=== PATIENT | female | born 1990 | race Two or more races ===

== ENCOUNTER 2019-09-01 10:16 | Inpatient (IN) | payer BC, MEDICAID ==
[2019-09-01] MEDS ORDERED: Ampicillin 2 GM AdvVial IV ONE (19:17)
[2019-09-01] MEDS ORDERED: Sodium Chloride 0.9% 100 ML ONE (19:18)
[2019-09-01] MEDS ORDERED: Sodium Chloride 0.9% 10 ML Syringe FLUSH PRN (19:39)
[2019-09-01] MEDS ORDERED: Ondansetron 4 MG/2 ML SDV IVPUSH PRN (19:39)
[2019-09-01] MEDS ORDERED: Oxytocin/Lactated Ringers 10 UNIT/1,000 ML BAG IV SCH (19:45)
[2019-09-01] MEDS: Oxytocin/Lactated Ringers 10 UNIT/1,000 ML BAG IV SCH (20:18)
--- NOTE | 2019-09-01 20:20 | PCM.LDHP ---
L&D History of Present Illness - General Date of Service: 09/01/19 Admit Problem/Dx: Patient Status Order with Admit Dx/Problem 09/01/19 19:39 Patient Status [ADT] Routine Admission Diagnosis/Problem Admission Diagnosis/Problem 09/01/19 20:25 lEa is a 28-year-old 2 para 1001 female who is admitted on the evening of 09/01/2019 for elective induction of labor at 39-2/7 weeks gestational age with an TOBIAS of 09/06/2019. Source of Information: Patient History Limitations: Reports: No Limitations - History of Present Illness Introduction:: Ela is a 28-year-old 2 para 1001 female who is admitted on the evening of 09/01/2019 for elective induction of labor at 39-2/7 weeks gestational age with an TOBIAS of 09/06/2019. The procedure, risks, benefits, alternatives of care including allowing for natural onset of labor all discussed with patient. She appears to understand and wishes to proceed. Presently her cervix is 2 cm, 80% effaced, soft, -3, mid position with baby in cephalic presentation. We CARDIAC SPECIALIST history 2 para 1001 and TOBIAS of 09/06/2019 is based upon a certain last menstrual period starting 11/30/2018 and supported by ultrasounds done on , 04/23/2019, 06/24/2019 in 07/31/2018. Her course has been relatively unremarkable. Patient was first seen for care on 03/13/2019. She originates in [place], [place]. She is made good fundal height growth during the course the . Her weight is increased from 144-171 pounds for a 27 pound weight gain. Her vital signs have been stable. Patient desires an epidural in labor and delivery. She had group B strep positive urine culture at first visit. She did have an abnormal 1 hour glucose tolerance test. This was evaluated with a three-hour glucose tolerance test which was on ultrasound the left renal pelvis was slightly increased in size to 8.2 mm at 29-6/7 weeks. Follow-up ultrasound done on 07/31/2019 was essentially normal. Recommendation was to follow-up in the period with renal ultrasound. Laboratory testing in shows blood to be O+ with a negative and by screen. Hemoglobin on first visit was 12.8 g/dL and platelets are 402,000. She was rubella immune, RPR is nonreactive. B strep grew out of her and at that time. Hepatitis B surface antigen and HIV assays were Chlamydia and gonorrhea assays were both negative. Second trimester hemoglobin was 10.6 g/dL. Platelets were 375,000. One-hour GTT was elevated three-hour GTT showed a fasting blood sugar of 84, a 1 hour glucose of 131 and 2 are glucose of 121 at which time the values were stopped. Allergies: None Medications: 1. Calcium 500 mg daily 2. vitamins 1 daily Past medical history: 1. Normal spontaneous vaginal delivery 1 Past surgical history: 1. Tonsillectomy 2008. Family history: Mother is alive with history of diabetes. Father is alive with history of diabetes. Sister had preeclampsia in , history of twin gestation with one in utero. Maternal grandmother is alive with high cholesterol and diabetes. Maternal grandfather is secondary to diabetes and dementia. Paternal grandmother is secondary to diabetes and dementia. Paternal grandfather is . Cause unknown. Family history of cancer Gloria related issues. Family history of high blood pressure. Social history: Patient is single. 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 She is a high school graduate. She and her significant other Troy live in [place], [place]. She does not use any significant most alcohol, drugs or tobacco. Review of systems: In general patient has no complaints. AB is active. Is having some contractions but they're very mild Skin: Negative Lungs: No infectious symptoms or shortness of breath Cardiovascular: No chest pain or exercise intolerance Breasts: Changes associated with .. GI: Negative : changes Musculoskeletal: Negative Neurological: Negative In general the patient is well-developed, well-nourished, pleasant female of stated age in no acute distress. Skin is warm dry without lesions. HEENT, neck and back within normal limits. Lungs are clear with good breath sounds in all lung angulo. Cardiovascular exam shows regular and rhythm without murmurs. Breast exam is deferred at this time having been done at first visit found to be normal at is not repeated at this point. Abdomen is gravid with fundal height on last evaluation clinic at 38.5 cm. Baby in vertex presentation. Genital per digital exam is as per history of present illness.. Extremities and neurological exam are grossly within normal limits. - Related Data Allergies/Adverse Reactions: Allergies Allergy/AdvReac Type Severity Reaction Status Date / Time No Known Allergies Allergy Verified 05/16/19 16:33 Home Medications: Home Meds Calcium Carbonate [Calcium] 500 mg PO DAILY 05/16/19 [History] Methylcellulose [Fiber Therapy] 500 mg PO DAILY 05/16/19 [History] Vit #76/Iron,Carb/Fa [Pnv 29-1 Tablet] 1 each PO DAILY 05/16/19 [ History] polyethylene glycoL 3350 [MiraLAX] 17 gm PO DAILY 05/16/19 [History] H&P Review of Systems - Review of Systems: Review Of Systems: See Below L&D Exam - Exam Exam: See Below - Vital Signs Weight: 78.471 kg Problem List Initiated/Reviewed/Updated: Yes Orders Last 24hrs: Active Orders 24 hr Category Date Time Status Patient Status [ADT] Routine ADT 09/01/19 19:39 Active Activity as Tolerated [RC] PFP Care 09/01/19 19:39 Active Communication Order [RC] ASDIRECTED Care 09/01/19 19:39 Active Heart Tones [RC] ASDIRECTED Care 09/01/19 19:40 Active Non Stress Test [RC] PER UNIT ROUTINE Care 09/01/19 19:39 Active Notify Provider [RC] PFP Care 09/01/19 19:39 Active Notify Provider [RC] PRN Care 09/01/19 19:39 Active Peripheral IV Care [RC] . DIRECTED Care 09/01/19 19:40 Active Pump Management, Intrathecal [RC] ASDIRECTED Care 09/01/19 19:40 Active Urinary Catheter Assessment [RC] ASDIRECTED Care 09/01/19 19:39 Active Vital Signs [RC] PER UNIT ROUTINE Care 09/01/19 19:39 Active Regular Diet [DIET] Diet 09/01/19 Breakfast Active CBC WITH AUTO DIFF [HEME] Stat Lab 09/01/19 19:39 Ordered RAPID PLASMA REAGIN,RPR [CHEM] Routine Lab 09/01/19 19:39 Ordered Ampicillin 1 gm Med 09/01/19 23:30 Active Sodium Chloride 0.9% [Normal Saline] 100 ml IV Q4H Lactated Ringers [Ringers, Lactated] 1,000 ml Med 09/01/19 19:45 Active IV ASDIRECTED Ondansetron [Zofran] Med 09/01/19 19:39 Active 4 mg IVPUSH Q4H PRN Oxytocin/Lactated Ringers [Pitocin in LR 10 Units/1,000 Med 09/01/19 19:45 Active ML] 10 unit in 1,000 ml IV .CONTINUOUS Oxytocin/Lactated Ringers [Pitocin in LR 10 Units/1,000 Med 09/01/19 19:45 Active ML] 10 unit in 1,000 ml IV TITRATE Sodium Chloride 0.9% [Saline Flush] Med 09/01/19 19:39 Active 10 ml FLUSH ASDIRECTED PRN Electronic Heart Tones Ext w TOCO [WOMSER] Oth 09/01/19 19:39 Ordered Routine Electronic Heart Tones Internal [WOMSER] Per Unit Oth 09/01/19 19:39 Ordered Routine Peripheral IV Insertion Adult [OM.PC] Routine Oth 09/01/19 19:39 Ordered Resuscitation Status Routine Resus Stat 09/01/19 19:39 Ordered Medication Orders Ampicillin Sodium 1 gm/ Sodium (Chloride) 100 mls @ 200 mls/hr IV Q4H SANJIV Lactated Ringer's (Ringers, Lactated) 1,000 mls @ 100 mls/hr IV ASDIRECTED SANJIV Oxytocin/Lactated Ringer's (Pitocin In Lr 10 Units/1,000 Ml) 10 unit in 1,000 mls @ 500 mls/hr IV .CONTINUOUS SANJIV Oxytocin/Lactated Ringer's (Pitocin In Lr 10 Units/1,000 Ml) 10 unit in 1,000 mls @ 12 mls/hr IV TITRATE SANJIV; Protocol Ondansetron HCl (Zofran) 4 mg IVPUSH Q4H PRN PRN Reason: Nausea/Vomiting Sodium Chloride (Saline Flush) 10 ml FLUSH ASDIRECTED PRN PRN Reason: Keep Vein Open Assessment/Plan Comment:: 1. 39-2/7 week intrauterine admitted for elective induction of labor. 2. Patient plans to breast-feed 3. Patient desires epidural in labor and delivery. 4. The patient received her T Immunization on 07/09/2019 5. Patient is rubella immune. Plan: 1. Pitocin induction of labor to be followed by artificial rupture membranes augmentation. The procedure, risks, benefits discussed with patient. She wishes to proceed 2. Epidural when necessary 3. CBC and RPR on admission 4. Support breast-feeding decision 5. Anticipate normal spontaneous vaginal delivery
[2019-09-01] MEDS: Ampicillin 1 GM in Sodium Chloride 0.9% 100 ML IV SCH (23:39)
[2019-09-02] MEDS ORDERED: Bupivacaine 0.25% 10 ML SDV ONE
[2019-09-02] MEDS: Ampicillin 1 GM in Sodium Chloride 0.9% 100 ML IV SCH ×2 (03:37→07:29)
[2019-09-02] MEDS: Lactated Ringers 1,000 ML IV SCH ×4 (03:38→06:29)
[2019-09-02] MEDS ORDERED: diphenhydrAMINE 50 MG/ML SDV IVPUSH PRN (03:58)
[2019-09-02] MEDS ORDERED: Bupivacaine/fentaNYL/NS 100 ML Bag EPIDUR PRN (03:58)
[2019-09-02] MEDS ORDERED: ePHEDrine 50 MG/ML SDV IVPUSH PRN (03:58)
[2019-09-02] MEDS ORDERED: fentaNYL 100 MCG/2 ML SDV EPIDUR PRN (03:58)
--- NOTE | 2019-09-02 04:31 | PCM.PREANE ---
Preanesthetic Assessment - Procedure Proposed Procedure: epidural - Anesthesia/Transfusion/Family Hx Anesthesia History: Prior Anesthesia Without Reaction Family History of Anesthesia Reaction: No Transfusion History: No Prior Transfusion(s) - Review of Systems General: Fatigue Pulmonary: No Symptoms Cardiovascular: No Symptoms Gastrointestinal: Abdominal Pain (labor) Neurological: Numbness (hands with ) Other: Reports: None - Physical Assessment Vital Signs: Last Vital Signs Temp 37.1 C 09/01/19 20:00 Pulse 92 09/01/19 20:00 Resp 16 09/01/19 20:00 BP 133/82 09/01/19 20:00 Pulse Ox 100 09/01/19 20:00 Height: 1.5 m Weight: 78.471 kg ASA Class: 2 Mental Status: Alert & Oriented x3 Airway Class: Mallampati = 2 Dentition: Reports: Normal Dentition Thyro-Mental Finger Breadths: 3 Mouth Opening Finger Breadths: 3 ROM/Head Extension: Full Lungs: Clear to Auscultation, Normal Respiratory Effort Cardiovascular: Regular Rate, Regular Rhythm - Lab Values: Laboratory Last Values WBC 8.81 K/mm3 (3.98-10.04) 09/01/19 20:15 RBC 3.95 M/mm3 (3.98-5.22) L 09/01/19 20:15 Hgb 9.8 gm/dl (11.2-15.7) L 09/01/19 20:15 Hct 31.0 % (34.1-44.9) L 09/01/19 20:15 MCV 78.5 fl (79.4-94.8) L D 09/01/19 20:15 MCH 24.8 pg (25.6-32.2) L 09/01/19 20:15 MCHC 31.6 g/dl (32.2-35.5) L 09/01/19 20:15 RDW Std Deviation 42.2 fL (36.4-46.3) 09/01/19 20:15 Plt Count 427 K/mm3 (182-369) H 09/01/19 20:15 MPV 9.2 fl (9.4-12.3) L 09/01/19 20:15 Neut % (Auto) 63.4 % (34.0-71.1) 09/01/19 20:15 Lymph % (Auto) 26.8 % (19.3-51.7) 09/01/19 20:15 [place] % (Auto) 7.5 % (4.7-12.5) 09/01/19 20:15 Eos % (Auto) 1.1 (0.7-5.8) 09/01/19 20:15 Baso % (Auto) 0.2 % (0.1-1.2) 09/01/19 20:15 Neut # (Auto) 5.58 K/mm3 (1.56-6.13) 09/01/19 20:15 Lymph # (Auto) 2.36 K/mm3 (1.18-3.74) 09/01/19 20:15 [place] # (Auto) 0.66 K/mm3 (0.24-0.36) H 09/01/19 20:15 Eos # (Auto) 0.10 K/mm3 (0.04-0.36) 09/01/19 20:15 Baso # (Auto) 0.02 K/mm3 (0.01-0.08) 09/01/19 20:15 RPR Non-reactive (NONREACTIVE) 09/01/19 20:15 - Allergies Allergies/Adverse Reactions: Allergies Allergy/AdvReac Type Severity Reaction Status Date / Time No Known Allergies Allergy Verified 05/16/19 16:33 - Anesthesia Plan Pre-Op Medication Ordered: None - Acknowledgements Anesthesia Type Planned: Epidural Pt an Appropriate Candidate for the Planned Anesthesia: Yes Alternatives and Risks of Anesthesia Discussed w Pt/Guardian: Yes Pt/Guardian Understands and Agrees with Anesthesia Plan: Yes PreAnesthesia Questionnaire Gastrointestinal History: Reports: GERD ENGINEERING SPECIALIST History: Reports: - Past Surgical History HEENT Surgical History: Reports: Tonsillectomy - SUBSTANCE USE Smoking Status *Q: Never Smoker Second Hand Smoke Exposure: No Recreational Drug Use History: No - HOME MEDS Home Medications: Home Meds . [No Known Home Meds] 09/01/19 [History] - CURRENT (IN HOUSE) MEDS Current Meds: Current Medications Diphenhydramine HCl (Benadryl) 25 mg IVPUSH Q6H PRN PRN Reason: Itching Ephedrine Sulfate (Ephedrine Sulfate) 5 mg IVPUSH ASDIRECTED PRN PRN Reason: HYPOTENTSION Fentanyl (Sublimaze) 100 mcg EPIDUR Q3H PRN PRN Reason: Pain Fentanyl/Bupivacaine HCl (Fentanyl/Bupivacaine/Ns 2 Mcg-0.125% 100 Ml) 0 ml EPIDUR CONTINUOUS PRN PRN Reason: Pain Ampicillin Sodium 1 gm/ Sodium (Chloride) 100 mls @ 200 mls/hr IV Q4H SANJIV Last Admin: 09/02/19 03:37 Dose: 200 mls/hr Lactated Ringer's (Ringers, Lactated) 1,000 mls @ 100 mls/hr IV ASDIRECTED SANJIV Last Admin: 09/02/19 03:39 Dose: 100 mls/hr Oxytocin/Lactated Ringer's (Pitocin In Lr 10 Units/1,000 Ml) 10 unit in 1,000 mls @ 500 mls/hr IV .CONTINUOUS SANJIV Oxytocin/Lactated Ringer's (Pitocin In Lr 10 Units/1,000 Ml) 10 unit in 1,000 mls @ 12 mls/hr IV TITRATE SANJIV; Protocol Last Titration: 09/01/19 23:44 Dose: 12 munits/min, 72 mls/hr Ondansetron HCl (Zofran) 4 mg IVPUSH Q4H PRN PRN Reason: Nausea/Vomiting Sodium Chloride (Saline Flush) 10 ml FLUSH ASDIRECTED PRN PRN Reason: Keep Vein Open Discontinued Medications Ampicillin Sodium (Ampicillin) Confirm Administered Dose 2 gm IV .STK-MED ONE Stop: 09/01/19 19:18 Last Admin: 09/01/19 19:27 Dose: 2 gm Sodium Chloride (Normal Saline) Confirm Administered Dose 100 mls @ as directed .ROUTE .STK-MED ONE Stop: 09/01/19 19:19 Last Admin: 09/01/19 19:27 Dose: 200 mls/hr
[2019-09-02] MEDS: Oxytocin/Lactated Ringers 10 UNIT/1,000 ML BAG IV SCH (09:58)
--- NOTE | 2019-09-02 10:43 | PCM.SN ---
- Free Text/Narrative Note: Ela is a 28-year-old 2 para 1001 female who is admitted on the evening of 09/01/2019 for elective induction of labor at 39-2/7 weeks gestational age with an TOBIAS of 09/06/2019. She underwent Pitocin induction of labor and with that cervix changed to dilation of 3+ centimeters, 90% effacement , -2 station, anterior, cephalic presentation. She underwent artificial rupture membranes at approximately 0300 hrs. on 09/02/2019. She then progressed to complete cervical dilation by approximately 0855 hrs. She began pushing at that time and pushed steadily and well. She had an epidural for labor analgesia. At 1016 hrs. on 09/02/2019 she delivered a viable, ambrocio, male named Khanh Miller. Khanh had a weight of 3430 g (7 lbs. 9 oz.) with Apgars of 7 and 9, a length of 20.5 inches. He delivered in a direct occiput anterior position spontaneously. Upon completion of the delivery the baby was placed on mom's abdomen. Cord was allowed to pulsate for 1-2 minutes and then was clamped 2 and cut by the baby's father Troy. Nose and mouth were bulb suctioned. The Pitocin was increased to 500 mL an hour to facilitate increased uterine tone and decreased likelihood of bleeding. Her blood was obtained. The umbilical cord was noted to have 3 blood vessels. The placenta then delivered at 1019 hrs. in a Mcgill presentation, appeared intact and complete and was discarded per patient desire. Uterus was massaged and found to be firm. Patient had approximately 300 mL of blood loss. Her perineum and vagina were intact and no suturing was required. plans to breast-feed. Condition: Good
[2019-09-02] MEDS ORDERED: Witch Hazel Medicated Pads 40/Jar TOP PRN (11:29)
[2019-09-02] MEDS ORDERED: Acetaminophen 325 MG Tab PO PRN (11:29)
[2019-09-02] MEDS ORDERED: Docusate Sodium 100 MG Cap PO PRN (11:29)
[2019-09-02] MEDS ORDERED: Benzocaine/Menthol 20%-0.5% Spray 56 GM Canister TOP PRN (11:29)
[2019-09-02] MEDS: Ibuprofen 600 MG Tab PO PRN ×2 (12:46→18:51)
[2019-09-03] MEDS: Ibuprofen 600 MG Tab PO PRN ×2 (02:52→12:31)
--- NOTE | 2019-09-03 10:01 | PCM.DCSUM1 ---
Discharge Summary - Hospital Course Free Text/Narrative:: Ela is a 28-year-old 2 para 1001 female who is admitted on the evening of 09/01/2019 for elective induction of labor at 39-2/7 weeks gestational age with an TOBIAS of 09/06/2019. She underwent Pitocin induction of labor and with that cervix changed to dilation of 3+ centimeters, 90% effacement , -2 station, anterior, cephalic presentation. She underwent artificial rupture membranes at approximately 0300 hrs. on 09/02/2019. She then progressed to complete cervical dilation by approximately 0855 hrs. She began pushing at that time and pushed steadily and well. She had an epidural for labor analgesia. At 1016 hrs. on 09/02/2019 she delivered a viable, ambrocio, male infant named Khanh Miller. Khanh had a weight of 3430 g (7 lbs. 9 oz.) with Apgars of 7 and 9, a length of 20.5 inches. He delivered in a direct occiput anterior position spontaneously. Upon completion of the delivery the baby was placed on mom's abdomen. Cord was allowed to pulsate for 1-2 minutes and then was clamped 2 and cut by the baby's father Troy. Nose and mouth were bulb suctioned. The Pitocin was increased to 500 mL an hour to facilitate increased uterine tone and decreased likelihood of bleeding. Her blood was obtained. The umbilical cord was noted to have 3 blood vessels. The placenta then delivered at 1019 hrs. in a Mcgill presentation, appeared intact and complete and was discarded per patient desire. Uterus was massaged and found to be firm. Patient had approximately 300 mL of blood loss. Her perineum and vagina were intact and no suturing was required. The patient plans to breast-feed. patient is doing well. She is ambulatory and well, nursing without problems and has minimal discharge. She is voiding without concerns. Patient is desiring discharge home Condition: Good Diagnosis: Stroke: No - Discharge Data Discharge Date: 09/03/19 Discharge Disposition: Home, Self-Care 01 Condition: Good - Referral to Home Health Primary Care Physician: Keanu Lindo MD - Patient Instructions Diet: Regular Diet as Tolerated (Nursing diet with increase calories and calcium as recommended) Activity: As Tolerated (No intercourse or tampons until bleeding resolves.) Driving: May Drive Today Showering/Bathing: May Shower (May take a bath) Notify Provider of: Fever, Increased Pain, Swelling and Redness, Nausea and/or Vomiting - Discharge Plan Prescriptions/Med Rec: Pnv No.95/Ferrous Fum/Folic AC [Prenavite Tablet] 1 each PO QAM #100 tablet Home Medications: Home Meds Acetaminophen [Tylenol] 650 mg PO Q4H PRN tablet 09/03/19 [Rx] Ibuprofen [Motrin] 600 mg PO Q4H PRN tablet 09/03/19 [Rx] Pnv No.95/Ferrous Fum/Folic AC [Prenavite Tablet] 1 each PO QAM #100 tablet 07/11 [Rx] Referrals: Keanu Lindo MD [Primary Care Provider] - (Return to clinic[facility]. Lindo September, at [facility] in [place], [place].) - Discharge Summary/Plan Comment DC Time >30 min.: No Discharge Summary/Plan Comment: Discharge instructions: 1. Discharge home 2. Diet, activity and follow-up discussed with patient. Recommend nursing diet with increased calories and calcium. 3. Precautions given concern increased pain, bleeding, temperature, signs/ symptoms of DVT/PE. 4. Medications per home medication was printed, discussed with and given to the patient. 5. Return to clinic-Dr. Lindo-[facility] in [place], [place]. Diagnosis: Term -delivered Condition: Good - Patient Data Vitals - Most Recent: Last Vital Signs Temp 36.8 C 09/03/19 08:43 Pulse 89 09/03/19 08:43 Resp 16 09/03/19 08:43 BP 94/61 09/03/19 08:43 Pulse Ox 97 09/03/19 08:43 Weight - Most Recent: 78.471 kg I&O - Last 24 hours: Intake & Output 09/02/19 09/03/19 09/03/19 22:59 06:59 14:59 Intake Total 320 Balance 320 Med Orders - Current: Current Medications Acetaminophen (Tylenol) 650 mg PO Q4H PRN PRN Reason: mild pain or fever Last Admin: 09/02/19 17:52 Dose: 650 mg Benzocaine/Menthol (Dermoplast Pain Relief [place]) 0 gm TOP ASDIRECTED PRN PRN Reason: Perineal Comfort Measure Last Admin: 09/02/19 12:28 Dose: 1 applic Docusate Sodium (Colace) 100 mg PO BID PRN PRN Reason: Constipation Ibuprofen (Motrin) 600 mg PO Q4H PRN PRN Reason: Mild pain or fever Last Admin: 09/03/19 02:52 Dose: 600 mg Witch Ellie (Tucks) 1 pad TOP ASDIRECTED PRN PRN Reason: Pain Last Admin: 09/02/19 12:28 Dose: 1 applic Discontinued Medications Ampicillin Sodium (Ampicillin) Confirm Administered Dose 2 gm IV .Nuserv-MED ONE Stop: 09/01/19 19:18 Last Admin: 09/01/19 19:27 Dose: 2 gm Bupivacaine HCl (Sensorcaine-Mpf 0.25%) 10 ml .ROUTE .Nuserv-MED ONE Stop: 09/02/19 00:01 Diphenhydramine HCl (Benadryl) 25 mg IVPUSH Q6H PRN PRN Reason: Itching Ephedrine Sulfate (Ephedrine Sulfate) 5 mg IVPUSH ASDIRECTED PRN PRN Reason: HYPOTENTSION Fentanyl (Sublimaze) 100 mcg EPIDUR Q3H PRN PRN Reason: Pain Fentanyl/Bupivacaine HCl (Fentanyl/Bupivacaine/Ns 2 Mcg-0.125% 100 Ml) 0 ml EPIDUR CONTINUOUS PRN PRN Reason: Pain Sodium Chloride (Normal Saline) Confirm Administered Dose 100 mls @ as directed .ROUTE .Nuserv-MED ONE Stop: 09/01/19 19:19 Last Admin: 09/01/19 19:27 Dose: 200 mls/hr Ampicillin Sodium 1 gm/ Sodium (Chloride) 100 mls @ 200 mls/hr IV Q4H SANJIV Last Admin: 09/02/19 07:29 Dose: 200 mls/hr Lactated Ringer's (Ringers, Lactated) 1,000 mls @ 100 mls/hr IV ASDIRECTED SANJIV Last Admin: 09/02/19 06:29 Dose: 100 mls/hr Oxytocin/Lactated Ringer's (Pitocin In Lr 10 Units/1,000 Ml) 10 unit in 1,000 mls @ 500 mls/hr IV .CONTINUOUS SANJIV Oxytocin/Lactated Ringer's (Pitocin In Lr 10 Units/1,000 Ml) 10 unit in 1,000 mls @ 12 mls/hr IV TITRATE SANJIV; Protocol Last Admin: 09/02/19 09:58 Dose: 10 munits/min, 60 mls/hr Ondansetron HCl (Zofran) 4 mg IVPUSH Q4H PRN PRN Reason: Nausea/Vomiting Sodium Chloride (Saline Flush) 10 ml FLUSH ASDIRECTED PRN PRN Reason: Keep Vein Open
--- NOTE | 2019-09-03 11:56 | PCM48HPAN ---
Post Anesthesia Note - EVALUATION WITHIN 48HRS OF ANESTHETIC Vital Signs in Normal Range: Yes Patient Participated in Evaluation: Yes Respiratory Function Stable: Yes Airway Patent: Yes Cardiovascular Function Stable: Yes Hydration Status Stable: Yes Pain Control Satisfactory: Yes Nausea and Vomiting Control Satisfactory: Yes Mental Status Recovered: Yes Vital Signs: Last Vital Signs Temp 36.8 C 09/03/19 08:43 Pulse 89 09/03/19 08:43 Resp 16 09/03/19 08:43 BP 94/61 09/03/19 08:43 Pulse Ox 97 09/03/19 08:43
== END 2019-09-03 13:50 | disposition home or self-care (01) | DRG 560 ==
LOC: JD.OB 10:16 → OBSVTOIN 09-02 10:16 → JD.OB 09-02 10:17
PROVIDERS: ADMIT Obstetrics & Gynecology; ATTEND Obstetrics & Gynecology
PROC: 10E0XZZ Delivery of Products of Conception, External Approach (ICD-10-PCS; principal; 2019-09-02)
PROC: 10907ZC Drainage of Amniotic Fluid, Therapeutic from Products of Conception, Via Natural or Artificial Opening (ICD-10-PCS; 2019-09-02)
PROC: 3E033VJ Introduction of Other Hormone into Peripheral Vein, Percutaneous Approach (ICD-10-PCS; 2019-09-02)
PROC: 3E0R3BZ Introduction of Anesthetic Agent into Spinal Canal, Percutaneous Approach (ICD-10-PCS; 2019-09-02)
DX: O99.824 Streptococcus B carrier state complicating childbirth (principal); Z3A.39 39 weeks gestation of pregnancy; Z37.0 Single live birth; Z79.899 Other long term (current) drug therapy; Z90.89 Acquired absence of other organs
CPT/HCPCS: 01967; 36415; 51702; 59025; 59409; 85025; 86592; A9270-GY; J0290; J2590; J3490; J7050; J7120

== ENCOUNTER 2020-08-16 00:22 | Inpatient (IN) | payer BC, MEDICAID ==
[2020-08-16] MEDS ORDERED: Calcium Carbonate 500 MG Tab.Chew PO PRN (13:22)
[2020-08-16] MEDS ORDERED: Nalbuphine 10 MG/1 ML Vial IVPUSH PRN (13:22)
[2020-08-16] MEDS ORDERED: Sodium Chloride 0.9% 10 ML Syringe FLUSH PRN (13:22)
[2020-08-16] MEDS ORDERED: Ondansetron 4 MG/2 ML SDV IVPUSH PRN (13:22)
[2020-08-16] MEDS ORDERED: Oxytocin/Lactated Ringers 10 UNIT/1,000 ML BAG IV SCH ×2 (13:30)
--- NOTE | 2020-08-16 13:41 | PCM.PREANE ---
Preanesthetic Assessment - Procedure Proposed Procedure: cj - Anesthesia/Transfusion/Family Hx Anesthesia History: Prior Anesthesia Without Reaction Family History of Anesthesia Reaction: No Transfusion History: No Prior Transfusion(s) - Review of Systems General: No Symptoms Pulmonary: No Symptoms Cardiovascular: No Symptoms Gastrointestinal: No Symptoms Neurological: No Symptoms Other: Reports: None - Physical Assessment Vital Signs: 131/77 20 104/ Height: 5 ft 2 in Weight: 80.286 kg ASA Class: 2 Mental Status: Alert & Oriented x3 Airway Class: Mallampati = 1 Dentition: Reports: Normal Dentition Thyro-Mental Finger Breadths: 3 Mouth Opening Finger Breadths: 3 ROM/Head Extension: Full Lungs: Clear to Auscultation, Normal Respiratory Effort Cardiovascular: Regular Rate, Regular Rhythm - Allergies Allergies/Adverse Reactions: Allergies Allergy/AdvReac Type Severity Reaction Status Date / Time No Known Allergies Allergy Verified 05/16/19 16:33 - Blood Blood Available: No - Acknowledgements Anesthesia Type Planned: Epidural Pt an Appropriate Candidate for the Planned Anesthesia: Yes Alternatives and Risks of Anesthesia Discussed w Pt/Guardian: Yes Pt/Guardian Understands and Agrees with Anesthesia Plan: Yes PreAnesthesia Questionnaire Cardiovascular History: Reports: None Respiratory History: Reports: None NUCLEAR SCIENTIST History: Reports: : 3 (40 weeks) Para: 2 Oncologic (Cancer) History: Reports: None - Past Surgical History HEENT Surgical History: Reports: Tonsillectomy - SUBSTANCE USE Tobacco Use Status *Q: Former Tobacco User Tobacco Use Within Last Twelve Months: No Second Hand Smoke Exposure: No Days Per Week of Alcohol Use: 0 Recreational Drug Use History: No - HOME MEDS Home Medications: Home Meds Pnv No.95/Ferrous Fum/Folic AC [Prenavite Tablet] 1 each PO QAM #100 tablet 09/03/19 [Rx] - CURRENT (IN HOUSE) MEDS Current Meds: Current Medications Calcium Carbonate/Glycine (Tums) 1,000 mg PO Q2H PRN PRN Reason: Indigestion Ampicillin Sodium 2 gm/ Sodium (Chloride) 100 mls @ 200 mls/hr IV ONETIME ONE Stop: 08/16/20 14:29 Ampicillin Sodium 1 gm/ Sodium (Chloride) 100 mls @ 200 mls/hr IV Q4H SANJIV Oxytocin/Lactated Ringer's (Pitocin In Lr 10 Units/1,000 Ml) 10 unit in 1,000 mls @ 12 mls/hr IV TITRATE SANJIV; Protocol Oxytocin/Lactated Ringer's (Pitocin In Lr 10 Units/1,000 Ml) 10 unit in 1,000 mls @ 100 mls/hr IV .CONTINUOUS SANJIV Lactated Ringer's (Ringers, Lactated) 1,000 mls @ 100 mls/hr IV ASDIRECTED SANJIV Nalbuphine HCl (Nubain) 10 mg IVPUSH Q2H PRN PRN Reason: Pain Ondansetron HCl (Zofran) 4 mg IVPUSH Q4H PRN PRN Reason: Nausea/Vomiting Sodium Chloride (Saline Flush) 10 ml FLUSH ASDIRECTED PRN PRN Reason: Keep Vein Open
[2020-08-16] MEDS ORDERED: diphenhydrAMINE 50 MG/ML SDV IVPUSH PRN (13:43)
[2020-08-16] MEDS ORDERED: Bupivacaine/fentaNYL/NS 100 ML Bag EPIDUR PRN (13:43)
[2020-08-16] MEDS ORDERED: ePHEDrine 50 MG/ML SDV IVPUSH PRN (13:43)
[2020-08-16] MEDS ORDERED: fentaNYL 100 MCG/2 ML SDV EPIDUR PRN (13:43)
[2020-08-16] MEDS: Lactated Ringers 1,000 ML IV SCH ×4 (13:56→19:59)
[2020-08-16] MEDS ORDERED: Ampicillin 2 GM in Sodium Chloride 0.9% 100 ML IV ONE (14:00)
--- NOTE | 2020-08-16 14:03 | PCM.LDHP ---
L&D History of Present Illness - General Date of Service: 08/16/20 Admit Problem/Dx: Patient Status Order with Admit Dx/Problem 08/16/20 13:22 Patient Status [ADT] Routine Admission Diagnosis/Problem Admission Diagnosis/Problem 08/16/20 13:50 Ela is a 29-year-old 3 para 2-0-0-2 female who is admitted for elective induction of labor on 08/16/2020 at 40-2/7 weeks gestational age with final TOBIAS of 08/14/2020. Source of Information: Patient History Limitations: Reports: No Limitations - History of Present Illness Introduction:: Ela is a 29-year-old 3 para 2-0-0-2 female who is admitted for elective induction of labor on 08/16/2020 at 40-2/7 weeks gestational age with final TOBIAS of 08/14/2020. The procedure and process of induction of labor, its risks, benefits, alternatives including allowing for natural onset of labor all discussed with the patient. She appears understand, wishes to proceed. She underwent AROM with resultant very light stained meconium and amniotic fluid. heart tones are reassuring. Cervix is 3 cm, 50% effaced, very soft, mid position to mildly posterior, -3 station but well applied to the cervix. Pitocin augmentation will be used as indicated. 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 Her TOBIAS of 08/14/2020 is determined by a last menstrual period starting 11/08/2019 and supported by an ultrasound done at 18-4/7 weeks and again at 20-3/7 weeks. Patient had menarche at age 15 approximately. Cycles q. months. Last menstrual period 11/08/2019. No control being used at time of conception. Her last 2 deliveries include the followin. Female infant born 06/30/2009 at 40 weeks gestational age after 5 hours of labor7 pounds 9 ounces. . Epidural used in labor. Born in [place]. Child's name is Anabel Garcia 2. Male infant born 09/01/2017 at 39-2/7 weeks gestational age7 pounds 9 ouncesNSVDepidural useSaint Alireza Costachild's name is Khanh course: Patient was seen early in 14 weeks gestational age. She had an ultrasound done at 18-4/7 weeks gestational age. She was seen on a regular basis. Weight gain was from a pregravida weight of 159 up to 175 for a 16 pound increase. Vital signs remained stable throughout the course. Fundal height growth was appropriate. Baby in vertex presentation. Patient is group B strep positive on urine culture. She is planning on epidural. She plans to breast-feed. She tested Covid positive on 07/14/2020. She is over this at this point with no residual effects. Laboratory testing in shows blood to be O+ with a negative antibody screen. First hemoglobin is 1.6. Platelets were 378,000. Pap smear was negative. Her rubella titer was immune RPR was nonreactive. Her showed group B strep positive status GC chlamydia were both negative. Second trimester hemoglobin showed 10.9 g/dL. Platelets 350,000 and diabetes screen was 113normal. RPR on 05/28/2020 was nonreactive. Group B strep was positive on culture. Allergies: None Medications: 1. vitamins 1 daily 2. Calcium 500 mg tabs daily Past medical history: 1. Normal spontaneous vaginal delivery x2. 2. Patient nausea after anesthetic. Past surgical history: 1. Tonsillectomy 2008 Family history: Mother is alive with history of diabetes. Father is alive with history of diabetes. Sister had preeclampsia in with history of twin gestation was 1 in utero. Maternal grandmother is alive with high cholesterol and diabetes. Maternal grandfather is secondary to diabetes and dementia. Paternal grandmother secondary to diabetes and dementia. Paternal grandmother father is deceasedcause unknown. Social history: Patient is single. She lives in [place], [place]. 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 She is a high school graduate. Her significant other is Troy. She does not use any significant alcohol, drugs or tobacco. Review of systems: In general patient has no complaints. Baby has been active. No contractions noted. Skin: Negative Lungs: No infectious symptoms or shortness of breath Cardiovascular: No chest pain or exercise intolerance Breasts: No lumps, changes in size, pain, dimpling, discharge or axillary or supraclavicular concerns. GI: Negative : Negative Musculoskeletal: Negative Neurological: Negative Physical exam: In general the patient is well-developed, well-nourished, pleasant female of stated age in no acute distress. Skin is warm dry without lesions. HEENT, neck and back within normal limits. Lungs are clear with good breath sounds in all lung angulo. Cardiovascular exam shows regular and rhythm without murmurs. Breast exam not done have been done at first visit found to be normal. Exam deferred have been on first visit found to be normal. Abdomen is protuberant with last fundal height in clinic-5 cm with baby in vertex presentation.. Genital per speculum bimanual shows normal external genitalia, BUS, pubic hair pattern. There is normal support, secretions and estrogenization vagina. Uterus is small, anterior, freely mobile, without parametrial induration or adnexal abnormalities. Extremities and neurological exam are grossly within normal limits. - Related Data Allergies/Adverse Reactions: Allergies Allergy/AdvReac Type Severity Reaction Status Date / Time No Known Allergies Allergy Verified 08/16/20 13:46 Home Medications: Home Meds Pnv No.95/Ferrous Fum/Folic AC [Prenavite Tablet] 1 each PO QAM #100 tablet 09/03/19 [Rx] Past Medical History Cardiovascular History: Reports: None Respiratory History: Reports: None ASSOCIATE DIRECTOR OF NURSING History: Reports: Oncologic (Cancer) History: Reports: None - Past Surgical History HEENT Surgical History: Reports: Tonsillectomy Social & Family History - Family History Family Medical History: No Pertinent Family History - Tobacco Use Tobacco Use Status *Q: Former Tobacco User Second Hand Smoke Exposure: No - Caffeine Use Caffeine Use: Reports: None - Alcohol Use Days Per Week of Alcohol Use: 0 - Recreational Drug Use Recreational Drug Use: No H&P Review of Systems - Review of Systems: Review Of Systems: See Below L&D Exam - Exam Exam: See Below - Vital Signs Weight: 80.286 kg Problem List Initiated/Reviewed/Updated: Yes Orders Last 24hrs: Active Orders 24 hr Category Date Time Status Patient Status [ADT] Routine ADT 08/16/20 13:22 Active Activity as Tolerated [RC] PFP Care 08/16/20 13:22 Active Communication Order [RC] ASDIRECTED Care 08/16/20 13:22 Active Notify Provider [RC] ASDIRECTED Care 08/16/20 13:43 Active Notify Provider [RC] PFP Care 08/16/20 13:22 Active Notify Provider [RC] PRN Care 08/16/20 13:22 Active Peripheral IV Care [RC] . DIRECTED Care 08/16/20 13:22 Active Pump Management, Intrathecal [RC] ASDIRECTED Care 08/16/20 13:23 Active Vital Signs [RC] PER UNIT ROUTINE Care 08/16/20 13:22 Active Regular Diet [DIET] Diet 08/16/20 Lunch Active BLOOD BANK HOLD SPECIMEN [BBK] Stat Lab 08/16/20 13:22 Ordered CBC WITH AUTO DIFF [HEME] Stat Lab 08/16/20 13:22 Ordered RAPID PLASMA REAGIN,RPR [CHEM] Routine Lab 08/16/20 13:22 Ordered Ampicillin 1 gm Med 08/16/20 18:00 Active Sodium Chloride 0.9% [Normal Saline] 100 ml IV Q4H Ampicillin 2 gm Med 08/16/20 14:00 Active Sodium Chloride 0.9% [Normal Saline] 100 ml IV ONETIME Bupivacaine/fentaNYL/NS [fentaNYL/Bupivacaine/NS 2 MCG- Med 08/16/20 13:43 Ordered 0.125% 100 ML] 100 ml EPIDUR ASDIRECTED PRN Calcium Carbonate [Tums] Med 08/16/20 13:22 Active 1,000 mg PO Q2H PRN Lactated Ringers [Ringers, Lactated] 1,000 ml Med 08/16/20 13:30 Active IV ASDIRECTED Nalbuphine [Nubain] Med 08/16/20 13:22 Active 10 mg IVPUSH Q2H PRN Ondansetron [Zofran] Med 08/16/20 13:22 Active 4 mg IVPUSH Q4H PRN Oxytocin/Lactated Ringers [Pitocin in LR 10 Units/1,000 Med 08/16/20 13:30 Active ML] 10 unit in 1,000 ml IV .CONTINUOUS Oxytocin/Lactated Ringers [Pitocin in LR 10 Units/1,000 Med 08/16/20 13:30 Active ML] 10 unit in 1,000 ml IV TITRATE Sodium Chloride 0.9% [Saline Flush] Med 08/16/20 13:22 Active 10 ml FLUSH ASDIRECTED PRN diphenhydrAMINE [Benadryl] Med 08/16/20 13:43 Ordered 25 mg IVPUSH Q6H PRN ePHEDrine [ePHEDrine sulfate] Med 08/16/20 13:43 Ordered 5 mg IVPUSH ASDIRECTED PRN fentaNYL [Sublimaze] Med 08/16/20 13:43 Ordered 100 mcg EPIDUR Q3H PRN Electronic Heart Tones Ext w TOCO [WOMSER] Oth 08/16/20 13:22 Ordered Routine Electronic Heart Tones Internal [WOMSER] Per Unit Oth 08/16/20 13:22 Ordered Routine Peripheral IV Insertion Adult [OM.PC] Routine Oth 08/16/20 13:22 Ordered Resuscitation Status Routine Resus Stat 08/16/20 13:22 Ordered Medication Orders Calcium Carbonate/Glycine (Tums) 1,000 mg PO Q2H PRN PRN Reason: Indigestion Diphenhydramine HCl (Benadryl) 25 mg IVPUSH Q6H PRN PRN Reason: pruritis Ephedrine Sulfate (Ephedrine Sulfate) 5 mg IVPUSH ASDIRECTED PRN PRN Reason: Hypotension Fentanyl (Sublimaze) 100 mcg EPIDUR Q3H PRN PRN Reason: Pain Fentanyl/Bupivacaine HCl (Fentanyl/Bupivacaine/Ns 2 Mcg-0.125% 100 Ml) 100 ml EPIDUR ASDIRECTED PRN PRN Reason: Pain Ampicillin Sodium 2 gm/ Sodium (Chloride) 100 mls @ 200 mls/hr IV ONETIME ONE Stop: 08/16/20 14:29 Ampicillin Sodium 1 gm/ Sodium (Chloride) 100 mls @ 200 mls/hr IV Q4H SANJIV Oxytocin/Lactated Ringer's (Pitocin In Lr 10 Units/1,000 Ml) 10 unit in 1,000 mls @ 12 mls/hr IV TITRATE SANJIV; Protocol Oxytocin/Lactated Ringer's (Pitocin In Lr 10 Units/1,000 Ml) 10 unit in 1,000 mls @ 100 mls/hr IV .CONTINUOUS SANJIV Lactated Ringer's (Ringers, Lactated) 1,000 mls @ 100 mls/hr IV ASDIRECTED SANJIV Nalbuphine HCl (Nubain) 10 mg IVPUSH Q2H PRN PRN Reason: Pain Ondansetron HCl (Zofran) 4 mg IVPUSH Q4H PRN PRN Reason: Nausea/Vomiting Sodium Chloride (Saline Flush) 10 ml FLUSH ASDIRECTED PRN PRN Reason: Keep Vein Open Assessment/Plan Comment:: 1. 40-2/7-week intrauterine admitted for induction of labor 2. Relatively low risk 3. Desires epidural 4. Plans to breast-feed 5. Group B strep positive with no allergies Plan: 1. AROM induction of labor with Pitocin augmentation as indicated 2. Epidural as needed per patient desire 3. Support breast-feeding decision 4. Group B strep prophylaxis ampicillin per protocol 5. Admission labs include CBC, RPR, COVID-19 testing 6. Routine labor care.
[2020-08-16] MEDS: Ampicillin 1 GM in Sodium Chloride 0.9% 100 ML IV SCH ×2 (18:10→22:16)
--- NOTE | 2020-08-17 00:45 | PCM.SN.2 ---
- Free Text/Narrative Note: Delivery note: Ela is a 29-year-old 3 para 2-0-0-2 female who is admitted for elective induction of labor on 08/16/2020 at 40-2/7 weeks gestational age with final TOBIAS of 08/14/2020. She underwent artificial rupture membranes with resultant very mildly meconium-stained amniotic fluid. Her tones were reviewed sugaring. She underwent epidural for labor analgesia. Approximately mid to late afternoon she underwent augmentation with Pitocin. She slowly progressed to complete cervical dilation by 2330 hrs. on 08/16/2020. At 00 22 hours on 08/17/2020 she delivered a viable, ambrocio, male with Apgars of 8 and 9, a weight of 4020 g (8 pounds 13.8 ounces) and a length of 22 inches in a direct occiput anterior position over an intact perineum. The shoulder was somewhat difficult to deliver but with gentle downward traction and adequate pushing the patient was able to accomplish this. There was no significant shoulder dystocia noted The baby then completely delivered and was placed on mom's abdomen on a warm dry blanket. Nose and mouth were bulb suction the baby was dried. Cord was allowed to pulsate for 2 to 3 minutes then was clamped x2 and cut by the baby's Father Troy. To be noted Pitocin was started immediately after delivery bay to facilitate increase in uterine tone and decrease likelihood of bleeding. Umbilical cord had 3 vessels. Cord blood was obtained. The perineum and vagina appear to be intact and no suturing was required. The placenta then delivered in a Ang presentation, it appeared intact and complete and was discarded per patient desire. Patient plans to breast-feed. Estimated blood loss: 300 cc. Condition: Good
[2020-08-17] MEDS ORDERED: Witch Hazel Medicated Pads 40/Jar TOP PRN (01:04)
[2020-08-17] MEDS ORDERED: Benzocaine/Menthol 20%-0.5% Spray 56 GM Canister TOP PRN (01:04)
[2020-08-17] MEDS ORDERED: Acetaminophen 325 MG Tab PO PRN (01:04)
[2020-08-17] MEDS ORDERED: Docusate Sodium 100 MG Cap PO PRN (01:04)
[2020-08-17] MEDS ORDERED: Oxytocin/Lactated Ringers 10 UNIT/1,000 ML BAG IV ONE (01:09)
[2020-08-17] MEDS: Ibuprofen 600 MG Tab PO PRN ×4 (02:40→19:39)
[2020-08-17] MEDS ORDERED: Bupivacaine 0.25% 10 ML SDV ONE (05:00)
--- NOTE | 2020-08-17 07:43 | PCM48HPAN ---
Post Anesthesia Note - EVALUATION WITHIN 48HRS OF ANESTHETIC Vital Signs in Normal Range: Yes Patient Participated in Evaluation: Yes Respiratory Function Stable: Yes Airway Patent: Yes Cardiovascular Function Stable: Yes Hydration Status Stable: Yes Pain Control Satisfactory: Yes Nausea and Vomiting Control Satisfactory: Yes Mental Status Recovered: Yes Vital Signs: Last Vital Signs Temp 36.3 C 08/17/20 03:36 Pulse 95 08/17/20 03:36 Resp 14 08/17/20 03:36 BP 128/63 08/17/20 03:36 Pulse Ox 96 08/17/20 03:36 - COMMENTS/OBSERVATIONS Free Text/Narrative:: no anesthesia complications noted
--- NOTE | 2020-08-17 08:46 | PCM.SN.2 ---
- Free Text/Narrative Note: note: Patient is doing well in the period. Minimal lochia, voiding well, ambulated without problems. Nursing without concerns. Patient is afebrile, vital signs are stable Abdomen is flat, soft, uterus is below the umbilicus and is firm and nontender. Legs are nontender. Assessment: recovery going well. Plan: Routine care. Patient be discharged home within the next 24-48 hours.
[2020-08-17] MEDS ORDERED: Prenatal Multivitamin with Calcium/Folic Acid/Iron Tab PO SCH (09:00)
[2020-08-18] MEDS: Ibuprofen 600 MG Tab PO PRN ×2 (02:23→08:32)
--- NOTE | 2020-08-18 08:21 | PCM.DCSUM1 ---
Discharge Summary - Hospital Course Free Text/Narrative:: Ela is a 29-year-old 3 para 2-0-0-2 female who is admitted for elective induction of labor on 08/16/2020 at 40-2/7 weeks gestational age with final TOBIAS of 08/14/2020. She underwent artificial rupture membranes with resultant very mildly meconium-stained amniotic fluid. Her tones were reviewed sugaring. She underwent epidural for labor analgesia. Approximately mid to late afternoon she underwent augmentation with Pitocin. She slowly progressed to complete cervical dilation by 2330 hrs. on 08/16/2020. At 00 22 hours on 08/17/2020 she delivered a viable, ambrocio, male infant with Apgars of 8 and 9, a weight of 4020 g (8 pounds 13.8 ounces) and a length of 22 inches in a direct occiput anterior position over an intact perineum. The shoulder was somewhat difficult to deliver but with gentle downward traction and adequate pushing the patient was able to accomplish this. There was no significant shoulder dystocia noted The baby then completely delivered and was placed on mom's abdomen on a warm dry blanket. Nose and mouth were bulb suction the baby was dried. Cord was allowed to pulsate for 2 to 3 minutes then was clamped x2 and cut by the baby's Father Troy. To be noted Pitocin was started immediately after delivery bay to facilitate increase in uterine tone and decrease likelihood of bleeding. Umbilical cord had 3 vessels. Cord blood was obtained. The perineum and vagina appear to be intact and no suturing was required. The placenta then delivered in a Ang presentation, it appeared intact and complete and was discarded per patient desire. Patient plans to breast-feed. Estimated blood loss: 300 cc. patient is done very well. She is ambulating well, has minimal lochia. She is nursing without problems and voiding without concerns. She is desiring discharge home. Condition: Good Diagnosis: Stroke: No - Discharge Data Discharge Date: 08/18/20 Discharge Disposition: Home, Self-Care 01 Condition: Good - Referral to Home Health Primary Care Physician: Keanu Lindo MD - Patient Instructions Diet: Regular Diet as Tolerated (Nursing diet with increased calories and calcium as recommended) Activity: As Tolerated (No intercourse or tampons until bleeding resolves.) Driving: May Drive Today Showering/Bathing: May Shower (May take a bath) Notify Provider of: Fever, Increased Pain, Swelling and Redness, Nausea and/or Vomiting - Discharge Plan Home Medications: Home Meds Calcium Carbonate/Vitamin D3 [Calcium 500 + Vit D 400] 1 tab PO DAILY 08/16/20 [History] Ferrous Sulfate [Iron] 325 mg PO DAILY 08/16/20 [History] Pnv No.95/Ferrous Fum/Folic AC [ Vitamins Tablet] 1 each PO DAILY 08/16/20 [History] Acetaminophen [Tylenol] 650 mg PO Q4H PRN tablet 08/18/20 [Rx] Ibuprofen [Motrin] 600 mg PO Q4H PRN tablet 08/18/20 [Rx] Referrals: Keanu Lindo MD [Primary Care Provider] - ([place] [facility] [place] - Discharge Summary/Plan Comment DC Time >30 min.: No Discharge Summary/Plan Comment: Discharge instructions: 1. Discharge home 2. Diet, activity and follow-up discussed with patient. Recommend nursing diet with increased calories and calcium. 3. Precautions given concern increased pain, bleeding, temperature, signs/symptoms of DVT/PE. 4. Medications per home medication was printed, discussed with and given to the patient. 5. Return to clinic-[facility]. [facility]2 to 4 weeks. Diagnosis: Term -delivered Condition: Good - Patient Data Vitals - Most Recent: Last Vital Signs Temp 36.3 C 08/18/20 02:30 Pulse 78 08/18/20 02:30 Resp 15 08/18/20 02:30 BP 115/74 08/18/20 02:30 Pulse Ox 97 08/18/20 02:30 Weight - Most Recent: 80.286 kg I&O - Last 24 hours: Intake & Output 08/17/20 08/18/20 08/18/20 22:59 06:59 14:59 Intake Total 480 Balance 480 Med Orders - Current: Current Medications Acetaminophen (Tylenol) 650 mg PO Q4H PRN PRN Reason: mild pain or fever Last Admin: 08/17/20 22:09 Dose: 650 mg Documented by: Benzocaine/Menthol (Dermoplast Pain Relief [place]) 0 gm TOP ASDIRECTED PRN PRN Reason: Perineal Comfort Measure Last Admin: 08/17/20 02:41 Dose: 1 can Documented by: Docusate Sodium (Colace) 100 mg PO BID PRN PRN Reason: Constipation Last Admin: 08/17/20 02:40 Dose: 100 mg Documented by: Ibuprofen (Motrin) 600 mg PO Q4H PRN PRN Reason: Mild pain or fever Last Admin: 08/18/20 02:23 Dose: 600 mg Documented by: Prenat Multivit/[place]/Iron/Folic Ac ( Plus Iron) 1 each PO DAILY [facility] Last Admin: 08/17/20 09:25 Dose: 1 each Documented by: Adrien Argueta ([facility]) 1 pad TOP ASDIRECTED PRN PRN Reason: Perineal Comfort Measure Last Admin: 08/17/20 02:41 Dose: 1 container Documented by: Discontinued Medications Bupivacaine HCl (Sensorcaine-Mpf 0.25%) 10 ml .ROUTE .STK-MED ONE Stop: 08/17/20 05:01 Calcium Carbonate/Glycine (Tums) 1,000 mg PO Q2H PRN PRN Reason: Indigestion Diphenhydramine HCl (Benadryl) 25 mg IVPUSH Q6H PRN PRN Reason: pruritis Ephedrine Sulfate (Ephedrine Sulfate) 5 mg IVPUSH ASDIRECTED PRN PRN Reason: Hypotension Fentanyl (Sublimaze) 100 mcg EPIDUR Q3H PRN PRN Reason: Pain Last Admin: 08/16/20 17:46 Dose: 100 mcg Documented by: Fentanyl/Bupivacaine HCl (Fentanyl/Bupivacaine/Ns 2 Mcg-0.125% 100 Ml) 100 ml EPIDUR ASDIRECTED PRN PRN Reason: Pain Last Admin: 08/16/20 17:46 Dose: 100 ml Documented by: Ampicillin Sodium 2 gm/ Sodium (Chloride) 100 mls @ 200 mls/hr IV ONETIME ONE Stop: 08/16/20 14:29 Last Admin: 08/16/20 13:56 Dose: 200 mls/hr Documented by: Ampicillin Sodium 1 gm/ Sodium (Chloride) 100 mls @ 200 mls/hr IV Q4H [facility] Last Admin: 08/16/20 22:16 Dose: 200 mls/hr Documented by: Oxytocin/Lactated Ringer's (Pitocin In Lr 10 Units/1,000 Ml) 10 unit in 1,000 mls @ 12 mls/hr IV TITRATE SANJIV; Protocol Last Titration: 08/17/20 00:23 Dose: 166.5 munits/min, 999 mls/hr Documented by: Oxytocin/Lactated Ringer's (Pitocin In Lr 10 Units/1,000 Ml) 10 unit in 1,000 mls @ 100 mls/hr IV .CONTINUOUS SANJIV Last Admin: 08/17/20 01:13 Dose: 999 mls/hr Documented by: Lactated Ringer's (Ringers, Lactated) 1,000 mls @ 100 mls/hr IV ASDIRECTED SANJIV Last Admin: 08/16/20 19:59 Dose: 100 mls/hr Documented by: Oxytocin/Lactated Ringer's (Pitocin In Lr 10 Units/1,000 Ml) Confirm Administered Dose 10 unit in 1,000 mls @ as directed IV .STK-MED ONE Stop: 08/17/20 01:10 Last Admin: 08/17/20 04:32 Dose: Not Given Documented by: Nalbuphine HCl (Nubain) 10 mg IVPUSH Q2H PRN PRN Reason: Pain Ondansetron HCl (Zofran) 4 mg IVPUSH Q4H PRN PRN Reason: Nausea/Vomiting Sodium Chloride (Saline Flush) 10 ml FLUSH ASDIRECTED PRN PRN Reason: Keep Vein Open
== END 2020-08-18 12:15 | disposition home or self-care (01) | DRG 560 ==
LOC: JD.OB 00:22 → OBSVTOIN 08-17 00:22 → JD.OB 08-17 00:23
PROVIDERS: ADMIT Obstetrics & Gynecology; ATTEND Obstetrics & Gynecology
PROC: 10E0XZZ Delivery of Products of Conception, External Approach (ICD-10-PCS; principal; 2020-08-17)
PROC: 10907ZC Drainage of Amniotic Fluid, Therapeutic from Products of Conception, Via Natural or Artificial Opening (ICD-10-PCS; 2020-08-17)
PROC: 3E0R3BZ Introduction of Anesthetic Agent into Spinal Canal, Percutaneous Approach (ICD-10-PCS; 2020-08-17)
PROC: 00HU33Z Insertion of Infusion Device into Spinal Canal, Percutaneous Approach (ICD-10-PCS; 2020-08-17)
DX: O48.0 Post-term pregnancy (principal); Z3A.40 40 weeks gestation of pregnancy; O77.0 Labor and delivery complicated by meconium in amniotic fluid; Z37.0 Single live birth; O99.824 Streptococcus B carrier state complicating childbirth; Z86.16 Personal history of COVID-19
CPT/HCPCS: 01967; 36415; 51702; 59025; 59409; 85025; 86592; A9270-GY; J0290; J2590; J3010; J3490; J7120

== ENCOUNTER 2023-07-31 08:45 | Day surgery (SDC) | payer BC ==
[~2023-07-31 08:45] MED LIST: Lactated Ringers 1,000 ML IV SCH; Sodium Chloride 0.9% 10 ML Syringe FLUSH PRN; Sodium Chloride 0.9% 10 ML Syringe FLUSH SCH
[2023-07-31] MEDS ORDERED: Propofol 200 MG/20 ML SDV ONE (09:33)
[2023-07-31] MEDS ORDERED: Midazolam 1 MG/ML 2 ML SDV ONE (09:33)
[2023-07-31] MEDS ORDERED: Lidocaine 2% 5 ML SDV ONE (09:34)
== END 2023-07-31 11:10 | disposition home or self-care (01) ==
LOC: JD.SDS 08:45
PROVIDERS: ATTEND Specialist
DX: K62.89 Other specified diseases of anus and rectum (principal); K21.9 Gastro-esophageal reflux disease without esophagitis; Z79.899 Other long term (current) drug therapy; Z98.890 Other specified postprocedural states
CPT/HCPCS: 45380; 81025; J2250; J2704; J7120; J3490